=== PATIENT | male | born 1975 | race Caucasian/White ===

== ENCOUNTER 2018-10-07 06:33 | Emergency (ER) | payer BC, OTHER ==
[2018-10-07 06:42] VITALS: BP 169/96
--- NOTE | 2018-10-07 07:16 | EDM.PDOC ---
ED HPI GENERAL MEDICAL PROBLEM - General Chief Complaint: Chest Pain Stated Complaint: LEFT ARM PAIN/LIGHT HEADED Time Seen by Provider: 10/07/18 07:01 Source of Information: Reports: Patient, RN Notes Reviewed History Limitations: Reports: No Limitations - History of Present Illness INITIAL COMMENTS - FREE TEXT/NARRATIVE: The patient states that he developed sudden onset left-sided chest discomfort, dizziness, the sensation of a racing heart, and diaphoresis around 04:45, while walking at work. He motions that the discomfort is felt from his upper left chest, where the pectoralis tendon inserts into the humerus, across his left chest to the left side of his sternum. He describes its character as "moderate" and "steady", like a "tore muscle". It is a discomfort, not a pain. He denies having associated dyspnea, nausea, or sense of impending doom. He states that the chest discomfort is still present, but the dizziness, diaphoresis, and sensation of a racing heart resolved after about 35-45 minutes. No prior similar symptoms. The patient's PCP is Dr. Melgar. Left Arm Pain Score (Numeric/FACES): 8 - Related Data Allergies Allergy/AdvReac Type Severity Reaction Status Date / Time No Known Allergies Allergy Verified 10/07/18 06:39 Home Meds: Home Meds ALPRAZolam [Xanax] 0.5 mg PO BEDTIME 10/16/14 [History] Losartan [Cozaar] 50 mg PO DAILY 10/07/18 [History] amLODIPine Besylate [Amlodipine Besylate] 10 mg PO DAILY 10/07/18 [History] Past Medical History HEENT History: Reports: Impaired Vision Cardiovascular History: Reports: Hypertension Psychiatric History: Reports: Anxiety (untreated since about January 2018) Endocrine/Metabolic History: Reports: Obesity/BMI 30+ - Past Surgical History HEENT Surgical History: Reports: Tonsillectomy GI Surgical History: Reports: Appendectomy Social & Family History - Tobacco Use Smoking Status *Q: Former Smoker Tobacco Use Within Last Twelve Months: Smokeless Tobacco (Chews 1 can/day) Years of Tobacco use: 20 Packs/Tins Daily: 1.5 Month/Year Tobacco Last Used: Quit 2013 - Alcohol Use Alcohol Use History: Yes Alcohol Use Frequency: Socially - Recreational Drug Use Recreational Drug Use: No - Living Situation & Occupation Living situation: Reports: Single, with Family (Son) Occupation: Employed (insulation foreman) ED ROS GENERAL - Review of Systems Review Of Systems: ROS reveals no pertinent complaints other than HPI. ED EXAM, GENERAL - Physical Exam Exam: See Below Exam Limited By: No Limitations General Appearance: Alert, WD/WN, No Apparent Distress Eye Exam: Bilateral Eye: EOMI, Normal Inspection Ears: Normal External Exam, Hearing Grossly Normal Nose: Normal Inspection Throat/Mouth: Normal Inspection, Normal Lips, Normal Voice, No Airway Compromise Head: Atraumatic, Normocephalic Neck: Normal Inspection, Full Range of Motion Respiratory/Chest: No Respiratory Distress, Lungs Clear, Normal Breath Sounds, No Accessory Muscle Use, Other (Reproducible tenderness to the left anterior axilla, at the pectoralis tendon) Cardiovascular: Normal Peripheral Pulses, Regular Rate, Rhythm, No Gallop, No JVD, No Murmur, No Rub Peripheral Pulses: 4+: Radial (L), Radial (R) GI/Abdominal: Normal Bowel Sounds, Soft, Non-Tender, No Organomegaly, No Distention, No Abnormal Bruit, No Mass, Other (obese) (Male) Exam: Deferred Rectal (Males) Exam: Deferred Back Exam: Normal Inspection, Full Range of Motion, NT Extremities: Normal Inspection, Normal Range of Motion, No Pedal Edema, Normal Capillary Refill Neurological: Alert, Oriented, Normal Cognition, No Motor/Sensory Deficits Psychiatric: Normal Affect Skin Exam: Warm, Dry, Intact, Normal Color, No Rash EKG INTERPRETATION EKG Date: 10/07/18 Time: 06:43 Rhythm: NSR Rate (Beats/Min): 79 [place]: Normal P-Wave: Present (Possible LAE) QRS: Normal (Early transition) ST-T: Normal QT: Normal Comparison: NA - No Prior EKG Course - Vital Signs Last Recorded V/S: Last Vital Signs Temp 36.4 C 10/07/18 06:38 Pulse 81 10/07/18 06:38 Resp 22 H 10/07/18 06:38 BP 169/96 H 10/07/18 06:38 Pulse Ox 97 10/07/18 06:38 - Orders/Labs/Meds Labs: Laboratory Tests 10/07/18 10/07/18 10/07/18 Range/Units 07:45 07:45 07:45 WBC 7.18 (4.23-9.07) K/mm3 RBC 5.72 (4.63-6.08) M/mm3 Hgb 16.1 (13.7-17.5) gm/L Hct 48.4 (40.1-51.0) % MCV 84.6 (79.0-92.2) fl MCH 28.1 (25.7-32.2) pg MCHC 33.3 (32.2-35.5) g/dl RDW Std Deviation 40.9 (35.1-43.9) fL Plt Count 196 (163-337) K/mm3 MPV 10.6 (9.4-12.3) fl Neutrophils % (Manual) 77 H (40-60) % Band Neutrophils % 1 (0-10) % Lymphocytes % (Manual) 17 L (20-40) % Atypical Lymphs % 0 % Monocytes % (Manual) 2 (2-10) % Eosinophils % (Manual) 2 (0.8-7.0) % Basophils % (Manual) 1 (0.2-1.2) Platelet Estimate Adequate RBC Morph Comment Normal D-Dimer, Quantitative 0.36 (0.19-0.50) mg/L Sodium 141 (136-145) mEq/L Potassium 4.4 (3.5-5.1) mEq/L Chloride 105 (98-107) mEq/L Carbon Dioxide 28 (21-32) mEq/L Anion Gap 12.4 (5-15) BUN 10 (7-18) mg/dL Creatinine 1.0 (0.7-1.3) mg/dL Est Cr Clr Drug Dosing 115.01 mL/min Estimated GFR (MDRD) > 60 (>60) mL/min BUN/Creatinine Ratio 10.0 L (14-18) Glucose 109 H (74-106) mg/dL Calcium 9.1 (8.5-10.1) mg/dL Total Bilirubin 0.5 (0.2-1.0) mg/dL AST 13 L (15-37) U/L ALT 35 (16-63) U/L Alkaline Phosphatase 56 (46-116) U/L Troponin I < 0.017 (0.00-0.056) ng/mL Total Protein 7.1 (6.4-8.2) g/dl Albumin 3.9 (3.4-5.0) g/dl Globulin 3.2 gm/dL Albumin/Globulin Ratio 1.2 (1-2) 10/07/18 Range/Units 09:00 WBC (4.23-9.07) K/mm3 RBC (4.63-6.08) M/mm3 Hgb (13.7-17.5) gm/L Hct (40.1-51.0) % MCV (79.0-92.2) fl MCH (25.7-32.2) pg MCHC (32.2-35.5) g/dl RDW Std Deviation (35.1-43.9) fL Plt Count (163-337) K/mm3 MPV (9.4-12.3) fl Neutrophils % (Manual) (40-60) % Band Neutrophils % (0-10) % Lymphocytes % (Manual) (20-40) % Atypical Lymphs % % Monocytes % (Manual) (2-10) % Eosinophils % (Manual) (0.8-7.0) % Basophils % (Manual) (0.2-1.2) Platelet Estimate RBC Morph Comment D-Dimer, Quantitative (0.19-0.50) mg/L Sodium (136-145) mEq/L Potassium (3.5-5.1) mEq/L Chloride (98-107) mEq/L Carbon Dioxide (21-32) mEq/L Anion Gap (5-15) BUN (7-18) mg/dL Creatinine (0.7-1.3) mg/dL Est Cr Clr Drug Dosing mL/min Estimated GFR (MDRD) (>60) mL/min BUN/Creatinine Ratio (14-18) Glucose (74-106) mg/dL Calcium (8.5-10.1) mg/dL Total Bilirubin (0.2-1.0) mg/dL AST (15-37) U/L ALT (16-63) U/L Alkaline Phosphatase (46-116) U/L Troponin I < 0.017 (0.00-0.056) ng/mL Total Protein (6.4-8.2) g/dl Albumin (3.4-5.0) g/dl Globulin gm/dL Albumin/Globulin Ratio (1-2) - Re-Assessments/Exams Free Text/Narrative Re-Assessment/Exam: 10/07/18 07:14 The patient describes a discomfort to his left chest, particularly at the upper left chest, where his left pectoralis tendon inserts, and he is tender at this position, as well. His ECG is unremarkable. I have ordered additional workup, that includes a chest x-ray and blood work, and includes a troponin. Because the patient reported that his heart was racing earlier, I have added a D-dimer, as well. 10/07/18 07:43 2-view chest radiograph appears to be grossly normal. The cardiac silhouette is within normal limits. No pulmonary vascular congestion. No pleural effusions. No focal infiltrate. No pneumothorax. Formal read per the Radiologist pending. 10/07/18 08:44 The patient's initial workup is completely unremarkable. I have ordered a second troponin, now that it has been 4 hours after the onset of his symptoms. If this second troponin is negative, the patient may safely be discharged home, to follow-up with his PCP. 10/07/18 09:37 Test results discussed with the patient. Today's workup, including 2 sets of troponins is entirely unremarkable. As above, I suspect that his symptoms are due to pectoralis tendinitis, for which I will recommend that he take over-the- counter ibuprofen, but I would also like him to undergo an outpatient stress test. I will have him follow-up with his PCP, Dr. Melgar, in that regard. Departure - Departure Time of Disposition: 09:38 Disposition: Home, Self-Care 01 Condition: Good Clinical Impression: Left sided chest pain - Discharge Information *PRESCRIPTION DRUG MONITORING PROGRAM REVIEWED*: Not Applicable *COPY OF PRESCRIPTION DRUG MONITORING REPORT IN PATIENT JEIMY: Not Applicable Instructions: Nonspecific Chest Pain, [id number] Referrals: Jose Melgar MD [Primary Care Provider] - Forms: ED Department Discharge Additional Instructions: You were seen in the emergency room for sudden onset left-sided chest pain, dizziness, and sweatiness. Workup in the ER included blood work, that included 2 sets of cardiac enzymes, a chest x-ray, and an ECG. Your entire workup was unremarkable. He has not suffered a heart attack. You do not have a blood clot in your lungs. You do not have pneumonia, or a collapsed lung. Based on your history, physical examination, and ER tests, the cause of your left-sided chest pain is most likely due to pain in your pectoralis tendon - the tendon that connects your left pectoralis muscle to your left upper arm. For this, we recommend that you take [id number] ibuprofen, 2-3 tablets ( 400-600 mg) every 8 hours, with food. While you did not suffer a heart attack, it is still possible that your pain was coming from your heart. We recommend that you undergo an outpatient stress test. Please follow-up with your PCP, Dr. Melgar, to arrange for one. If any other problems, please do not hesitate to return to the ER.
--- NOTE | 2018-10-07 08:23 | CR ---
Chest: Two views of the chest are obtained. Comparison: Prior chest x-ray of 10/22/12. Heart size is normal. Tortuous thoracic aorta is seen. Lungs are clear with no acute parenchymal change. Bony structures appear within normal limits for the patient's age. Impression: 1. Nothing acute is seen on two-view chest x-ray. Diagnostic code #1
== END 2018-10-07 09:52 | disposition home or self-care (01) ==
LOC: JD.ED 06:33
DX: R07.89 Other chest pain (principal); I10 Essential (primary) hypertension; F41.9 Anxiety disorder, unspecified; Z79.899 Other long term (current) drug therapy; Z87.891 Personal history of nicotine dependence; Z90.89 Acquired absence of other organs
CPT/HCPCS: 36415; 71046; 71046-26; 80053; 84484; 85007; 85027; 85379; 93005; 99285-25

== ENCOUNTER 2019-12-11 06:08 | Day surgery (SDC) | payer OTHER ==
[~2019-12-11 06:08] MED LIST: Lactated Ringers 1,000 ML IV SCH; Lidocaine 1%/Sod Bicarbonate in NS 8.4% 1 ML Syringe IDERM PRN; Sodium Chloride 0.9% 10 ML Syringe FLUSH PRN
[2019-12-11] MEDS ORDERED: Bupivacaine 0.25% 10 ML SDV ONE (06:17)
--- NOTE | 2019-12-11 06:46 | PCM.PREANE ---
Preanesthetic Assessment - Anesthesia/Transfusion/Family Hx Anesthesia History: Prior Anesthesia Without Reaction Family History of Anesthesia Reaction: No Transfusion History: No Prior Transfusion(s) - Review of Systems General: No Symptoms Pulmonary: No Symptoms Cardiovascular: No Symptoms Gastrointestinal: No Symptoms Neurological: Numbness (airam hands) Other: Reports: None - Physical Assessment NPO Status Date: 12/10/19 NPO Status Time: 00:00 Height: 1.91 m Weight: 123 kg ASA Class: 2 Mental Status: Alert & Oriented x3 Airway Class: Mallampati = 2 Dentition: Reports: Normal Dentition Thyro-Mental Finger Breadths: 3 Mouth Opening Finger Breadths: 3 ROM/Head Extension: Full Lungs: Clear to Auscultation, Normal Respiratory Effort Cardiovascular: Regular Rate, Regular Rhythm - Lab Values: Laboratory Last Values MRSA (PCR) Negative 12/02/19 09:55 - Allergies Allergies/Adverse Reactions: Allergies Allergy/AdvReac Type Severity Reaction Status Date / Time No Known Allergies Allergy Verified 12/10/19 15:00 - Blood Blood Available: No Product(s) Available: None - Anesthesia Plan Pre-Op Medication Ordered: Beta Vibha Beta Vibha: Metoprolol Med Last Dose Date: 12/11/19 Med Last Dose Time: 05:30 - Acknowledgements Anesthesia Type Planned: General Anesthesia Pt an Appropriate Candidate for the Planned Anesthesia: Yes Alternatives and Risks of Anesthesia Discussed w Pt/Guardian: Yes Pt/Guardian Understands and Agrees with Anesthesia Plan: Yes PreAnesthesia Questionnaire - Past Health History Medical/Surgical History: Denies Medical/Surgical History HEENT History: Reports: Impaired Vision Other HEENT History: Wears Cardiovascular History: Reports: High Cholesterol, Hypertension Respiratory History: Reports: Other (See Below) Other Respiratory History: UPPER RESPIRATORY INFECTION Gastrointestinal History: Reports: None Genitourinary History: Reports: None MANAGER RELATIONSHIP History: Reports: None Musculoskeletal History: Reports: None Neurological History: Reports: None Psychiatric History: Reports: Anxiety Endocrine/Metabolic History: Reports: Obesity/BMI 30+ Hematologic History: Reports: None Immunologic History: Reports: None Oncologic (Cancer) History: Reports: None Dermatologic History: Reports: None - Past Surgical History Head Surgeries/Procedures: Reports: None HEENT Surgical History: Reports: Oral Surgery, Tonsillectomy Cardiovascular Surgical History: Reports: None Respiratory Surgical History: Reports: None GI Surgical History: Reports: Appendectomy Female Surgical History: Reports: None Male Surgical History: Reports: None Endocrine Surgical History: Reports: None Neurological Surgical History: Reports: None Musculoskeletal Surgical History: Reports: None Oncologic Surgical History: Reports: None - SUBSTANCE USE Smoking Status *Q: Current Every Day Smoker Tobacco Use Within Last Twelve Months: Smokeless Tobacco Second Hand Smoke Exposure: Yes Days Per Week of Alcohol Use: 1 Number of Drinks Per Day: 1 Total Drinks Per Week: 1 Recreational Drug Use History: No - HOME MEDS Home Medications: Home Meds ALPRAZolam [Xanax] 0.5 mg PO BEDTIME 10/16/14 [History] Losartan [Cozaar] 50 mg PO DAILY 10/07/18 [History] amLODIPine Besylate [Amlodipine Besylate] 10 mg PO DAILY 10/07/18 [History] Metoprolol Succinate 25 mg PO DAILY 12/10/19 [History] Acetaminophen/HYDROcodone [[place] 325-5 MG] 1 - 2 tab PO Q6H PRN #20 tablet 12/10 [Rx] Aspirin 325 mg PO BID #84 tab 12/11/19 [Rx] - CURRENT (IN HOUSE) MEDS Current Meds: Current Medications Lactated Ringer's (Ringers, Lactated) 1,000 mls @ 125 mls/hr IV ASDIRECTED DANNI Stop: 12/11/19 23:00 Lidocaine/Sodium Bicarbonate (Buffered Lidocaine 1% In Ns 8.4%) 0.25 ml IDERM ONETIME PRN PRN Reason: Prior to IV Start Stop: 12/11/19 18:00 Sodium Chloride (Saline Flush) 10 ml FLUSH ASDIRECTED PRN PRN Reason: Keep Vein Open Stop: 12/11/19 18:00 Discontinued Medications Bupivacaine HCl (Sensorcaine-Mpf 0.25%) Confirm Administered Dose 20 ml .ROUTE .STK-MED ONE Stop: 12/11/19 06:18
[2019-12-11] MEDS ORDERED: Ondansetron 4 MG/2 ML SDV ONE (06:52)
[2019-12-11] MEDS ORDERED: Midazolam 1 MG/ML 2 ML SDV ONE (06:52)
[2019-12-11] MEDS ORDERED: Rocuronium 50 MG/5 ML Vial ONE (06:52)
[2019-12-11] MEDS ORDERED: fentaNYL 250 MCG/5 ML SDV ONE (06:52)
[2019-12-11] MEDS ORDERED: Propofol 200 MG/20 ML SDV ONE (06:52)
[2019-12-11] MEDS ORDERED: Lidocaine 1% 4 ML ONE (06:53)
[2019-12-11] MEDS ORDERED: Ketorolac 30 MG/ML SDV ONE (06:53)
[2019-12-11] MEDS ORDERED: ceFAZolin 1 GM Vial ONE (07:11)
[2019-12-11] MEDS ORDERED: EPINEPHrine 1 MG/ML 30 ML MDV IRR SCH (07:15)
[2019-12-11] MEDS ORDERED: Lactated Ringers 1,000 ML ONE (07:25)
[2019-12-11] MEDS ORDERED: HYDROmorphone 0.5 MG/0.5 ML Syringe IVPUSH PRN (08:10)
[2019-12-11] MEDS ORDERED: fentaNYL 100 MCG/2 ML SDV IVPUSH PRN (08:10)
--- NOTE | 2019-12-11 08:12 | PCM.POSTAN ---
POST ANESTHESIA ASSESSMENT - MENTAL STATUS Mental Status: Alert, Oriented - VITAL SIGNS Vital Signs: Last Vital Signs Temp 36.2 C 12/11/19 06:14 Pulse 60 12/11/19 06:14 Resp 18 12/11/19 06:14 BP 156/92 H 12/11/19 06:14 Pulse Ox 96 12/11/19 06:14 - RESPIRATORY Respiratory Status: Respiratory Rate WNL, Airway Patent, O2 Saturation Stable, Supplemental Oxygen - CARDIOVASCULAR CV Status: Pulse Rate WNL, Blood Pressure Stable - GASTROINTESTINAL GI Status: No Symptoms - PAIN Pain Score: 0 - POST OP HYDRATION Hydration Status: Adequate & Stable - OBSERVATIONS Free Text/Narrative:: no anesthesia complications noted
[2019-12-11] MEDS ORDERED: Acetaminophen/HYDROcodone 325-5 MG Tab PO PRN (08:53)
--- NOTE | 2019-12-11 09:16 | PCM48HPAN ---
Post Anesthesia Note - EVALUATION WITHIN 48HRS OF ANESTHETIC Vital Signs in Normal Range: Yes Patient Participated in Evaluation: Yes Respiratory Function Stable: Yes Airway Patent: Yes Cardiovascular Function Stable: Yes Hydration Status Stable: Yes Pain Control Satisfactory: Yes Nausea and Vomiting Control Satisfactory: Yes Mental Status Recovered: Yes Vital Signs: Last Vital Signs Temp 36.4 C 12/11/19 08:58 Pulse 60 12/11/19 06:14 Resp 14 12/11/19 08:58 BP 140/93 H 12/11/19 08:58 Pulse Ox 95 12/11/19 08:58
[2019-12-11 10:33] VITALS: BP 143/96; PULSE 68
--- NOTE | 2019-12-15 13:05 | PCM.OPNOTE ---
- General Post-Op/Procedure Note Date of Surgery/Procedure: 12/11/19 Operative Procedure(s): left knee video arthroscopy with patellar chondroplasty and partial synovectomy Pre Op Diagnosis: possilbe left knee medial meniscus tear Post-Op Diagnosis: Same Anesthesia Technique: General LMA, Local Primary Surgeon: Fernando Flores Anesthesia Provider: Slick Bose Customer Complaint Clerk: Staci Mack EBJj in mLs: 5 Complications: None Condition: Good
--- NOTE | 2019-12-15 13:27 | OR ---
DATE OF OPERATION: 12/11/2019 SURGEON: Fernando Flores MD OPERATION PERFORMED: Left knee video arthroscopy with patellar chondroplasty and partial synovectomy. PREOPERATIVE DIAGNOSIS: Possible left knee medial meniscus tear. 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 ANESTHESIA: General LMA with local. ANESTHESIA PROVIDER: Slick Bose CRNA DIRECTOR OF OPERATIONS SUPPORT: Staci Mack PA-C. ESTIMATED BLOOD LOSS: 5 mL. COMPLICATIONS: None. CONDITION: Stable. DESCRIPTION OF PROCEDURE: The patient was identified in the preoperative holding area. Proper site was marked and identified by the surgeon. The patient was taken back to the operating theater where after adequate anesthesia, the patient's right lower extremity was placed in well-leg lakhani and left lower extremity had a nonsterile tourniquet applied and it was sterilely prepped and draped in the usual sterile fashion. OR time-out was performed. The patient received 2 g IV Ancef. The left lower extremity was exsanguinated. Tourniquet was insufflated to 250 mmHg. Standard anterior lateral portal incision was made and the scope was introduced. The patient was noted to have grade 3 chondromalacia of the patella, especially on the medial facet with loose cartilage flaps. He also had significantly inflamed fat pad with a plica that showed significant erythema. Attention was turned to the medial compartment. At this time, anteromedial portal was created and the meniscus was then probed. It was found to have no medial meniscus tear. He did have grade 1 chondromalacia of the medial compartment. ACL was intact in the notch. Lateral compartment showed no chondromalacia and no lateral meniscus tear. A chondroplasty was then performed of the medial facet of the patella back to a stable rim. There was no full- thickness cartilage defects, but it was grade 3 in small area roughly 5 mm x 8 mm. A partial synovectomy was then performed at the fat pad as well as the plica at this point, back to a stable rim. Excess saline was drained from the knee. 3-0 nylon simple sutures used for closure of skin. The patient had a sterile soft dressing applied and sent to PACU in stable condition. MMODAL /[id number]
== END 2019-12-11 10:09 | disposition home or self-care (01) ==
LOC: JD.SDS 06:08
PROVIDERS: ATTEND Orthopaedic Surgery
DX: M22.42 Chondromalacia patellae, left knee (principal); M67.52 Plica syndrome, left knee; M25.862 Other specified joint disorders, left knee; I10 Essential (primary) hypertension; E78.00 Pure hypercholesterolemia, unspecified; E66.9 Obesity, unspecified; Z79.82 Long term (current) use of aspirin; Z79.899 Other long term (current) drug therapy; Z87.891 Personal history of nicotine dependence; Z68.34 Body mass index [BMI] 34.0-34.9, adult
CPT/HCPCS: 29875; 87641; A9270; J0171; J0690; J1885; J2001; J2250; J2405; J2704; J3010; J3490; J7120; 01400